=== PATIENT | female | born 1985 ===

== ENCOUNTER 2021-12-22 23:51 | Emergency (ER) | payer MEDICAID ==
[2021-12-23] MEDS ORDERED: SODIUM CHLORIDE 0.9% 1000 ML 1,000 ML IV ONE (00:18)
[2021-12-23] MEDS ORDERED: METOCLOPRAMIDE 10 MG/2 ML INJ IV ONE (00:18)
[2021-12-23] MEDS ORDERED: diphenhydrAMINE 50 MG/ML VIAL IV ONE (00:18)
[2021-12-23] MEDS ORDERED: FAMOTIDINE 20 MG/2 ML INJ IV ONE (00:18)
[2021-12-23 01:09] LABS: Basophils % (Auto) 0.3 % (0.0-1.8); Eosinophils # (Auto) 0.1 K/mm3 (0.0-0.4); Eosinophils % (Auto) 0.8 % (0.0-4.3); Hematocrit 41.1 % (30.3-42.9); Hemoglobin 13.7 gm/dl (10.1-14.3); Lymphocytes # (Auto) 3.2 K/mm3 (1.2-5.4); Lymphocytes % (Auto) 19.6 % (13.4-35.0); Mean Corpuscular HGB Conc 33 % (30-34); Mean Corpuscular Volume 98 fl (79-97); Monocytes # (Auto) 0.7 K/mm3 (0.0-0.8); Monocytes % (Auto) 4.1 % (0.0-7.3); Platelet Count 233 K/mm3 (140-440); Red Cell Distribution Width 13.6 % (13.2-15.2)
[2021-12-23] MEDS ORDERED: MORPHINE 4 MG/1 ML INJ IV ONE (01:10)
[2021-12-23 01:25] LABS: Alanine Aminotransferase 18 units/L (7-56); Albumin 4.5 g/dL (3.9-5); Blood Urea Nitrogen 13 mg/dL (7-17); Calcium 9.1 mg/dL (8.4-10.2); Hemolysis Index 8
[2021-12-23 01:26] LABS: BUN/Creatinine Ratio 19
--- NOTE | 2021-12-23 02:21 | Cat Scan Report ---
. CT ABDOMEN AND PELVIS WITH CONTRAST INDICATION: abdominal pain, N/V. TECHNIQUE: Axial CT images were obtained through the abdomen and pelvis after 100 cc Omni [address] scans at this location are performed using CT dose reduction for ALARA by means of automated expos ure control. COMPARISON: None available. FINDINGS: LOWER CHEST: No significant abnormality. LIVER: No significant abnormality. GALLBLADDER: No significant abnormality. BILE DUCTS: No significant abnormality. PANCREAS: No significant abnormality. SPLEEN: No significant abnormality. ADRENALS: No significant abnormality. RIGHT KIDNEY and URETER: No significant abnormality. LEFT KIDNEY and URETER: No significant abnormality. STOMACH and SMALL BOWEL: Fluid-filled nondilated loops of small bowel suggestive for gastroenteritis COLON: No significant abnormality. APPENDIX: No significant abnormality. PERITONEUM: No free fluid. No free air. No fluid collection. LYMPH NODES: No significant adenopathy. AORTA and ARTERIES: No significant abnormality. IVC and VEINS: No significant abnormality. URINARY BLADDER: No significant abnormality. REPRODUCTIVE ORGANS: 4 cm right ovarian cyst. No free fluid. Uterus absent. ADDITIONAL FINDINGS: None. SKELETAL SYSTEM: No significant abnormality. IMPRESSION: 1. 4 cm right ovarian cyst. No free fluid to suggest leakage or rupture 2. Probable viral gastroenteritis Signer Name: Soto Vu MD Signed: 12/23/2021 2:17 AM Workstation Name: [id number]
[2021-12-23] MEDS ORDERED: ONDANSETRON 4 MG/2 ML INJ IV ONE (03:02)
[2021-12-23] MEDS ORDERED: KETOROLAC 30 MG/1 ML INJ IV ONE (03:02)
[2021-12-23 04:39] LABS: Bilirubin,Urine NEG (Negative); Blood,Urine SM (Negative); Color,Urine Yellow (Yellow); Mucus,Urine FEW /HPF; Protein,Urine <15 mg/dL mg/dL (Negative); Urobilinogen,Urine < 2.0 mg/dL (<2.0)
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
[2021-12-23 06:58] VITALS: BP 122/76
--- NOTE | 2021-12-24 12:20 | Electrocardiograph Report ---
[facility] Test Date: 2021-12-23 Test Time: 00:06:22 Pat Name: THOMAS GU Department: Room: Gender: F 3D Technologist: NOELLE : 1985 Requested By: SHARLENE TORRES Order Number: [id number] Reading MD: Nakia Browne Measurements Intervals Bradley Rate: 68 P: 100 MO: 145 QRS: 94 QRSD: 124 T: 46 QT: 433 QTc: 462 Interpretive Statements Right and left arm electrode reversal, interpretation assumes no reversal Sinus rhythm Right axis deviation No previous ECG available for comparison Electronically Signed On 12-24-2021 12:19:52 EDT by Nakia Browne
== END 2021-12-23 06:25 | disposition home or self-care (01) ==
LOC: ED 23:51
DX: A08.4 Viral intestinal infection, unspecified (principal); N83.201 Unspecified ovarian cyst, right side; R10.84 Generalized abdominal pain; R11.2 Nausea with vomiting, unspecified; J45.909 Unspecified asthma, uncomplicated; Z98.890 Other specified postprocedural states
CPT/HCPCS: 36415; 74177; 80053; 81001; 82962; 83690; 84703; 85025; 93005; 96361; 96374; 96375; 99284; J1200; J1885; J2270; J2405; J2765; J3490; J7030; Q9967